=== PATIENT | female | born 1970 | race Caucasian/White ===

== ENCOUNTER → 2018-10-26 12:12 | Outpatient (CLI) | payer MEDICAID, SELFPAY ==
--- NOTE | 2018-10-26 12:14 | NM_ITS ---
SPECT MYOCARDIAL PERFUSION SCAN, REST AND STRESS: EXERCISE STRESS: [facility] REVIEW QGS EF AND WALL MOTION EVALUATION: QPS - PERFUSION EVALUATION: HISTORY: Chest pain PROCEDURE: Rest imaging performed after administration of9.99 millicuries Tc MIBI. Dose administered at12:25 p.m., with imaging thereafter. Stress imaging was then performed following6 minutes 30 seconds of exercise stress. The patient achieved a heart [id number] with projected heart rate of145 . Resting BP129/68 with stress 170/84. At maximum exercise stress,32.4 millicuries Tc MIBI administered at1:45 pm. with minutes thereafter. FINDINGS: Perfusion Evaluation: The single slice spect images as well as the [facility] bull's-eye data summary were reviewed. Wall Motion and Ejection Fraction Evaluation: Gated SPECT review and analysis used to evaluate these features. There is a 62 % left ventricular ejection fraction. There seems to be good wall motion Uniform myocardial activity during stress images with mild apical decrease in rest images IMPRESSION: Clinical correlation is advised. There is uniform activity with stress but mildly decreased activity in the apex at rest suggesting possible reverse redistribution. Normal ejection fraction wall motion
--- NOTE | 2018-10-26 12:38 | HMH.ITSHM ---
Current Home Medications as stated by this patient Jordana Kingston or sales representative publications. []CYMBALTA METOPROLOL XANAX HYDROCODONE
== END ==
PROVIDERS: PCP Family Medicine; Visit Provider Internal Medicine
DX: R07.9 Chest pain, unspecified (principal); E78.5 Hyperlipidemia, unspecified; I10 Essential (primary) hypertension; R06.02 Shortness of breath; R60.9 Edema, unspecified; Z82.49 Family history of ischemic heart disease and other diseases of the circulatory system
CPT/HCPCS: 78452; 93017; A9502